=== PATIENT | male | born 1980 | race American Indian/Alaskan Native ===

== ENCOUNTER 2016-11-30 22:04 | Emergency (ER) | payer MEDICARE ==
--- NOTE | 2016-12-01 02:27 | Emergency Department Report ---
ED Neck Pain/Injury HPI - General Chief Complaint: Neck Pain/Injury Stated Complaint: ABCESS/NECK Time Seen by Provider: 12/01/16 01:26 Source: family Mode of arrival: Ambulatory Limitations: Other - History of Present Illness Initial Comments: Family brought patient to the hospital. The patient will right-sided neck swelling they said that patient pain is 8 out of 10 but patient cannot force pain he is mentally delayed and has a speech impediment and definitely left ear. His blood pressure is 155/115 and emergency room and family reports the patient does not have high blood pressure. They did not give patient any over- the-counter medication for pain. Patient does have a primary care is Dr. Mandeep Harrison. They deny patient was drooling or difficulty swallowing. Denies patient with any difficulty in breathing. Mom also reported that patient with drainage from left ear. Denies any trauma. MD Complaint: neck pain Onset/Timin -: days(s) Place: home Radiation: right lateral Severity scale (0 -10): 0 (unable to determine due to patient mental status) Context: unknown Associated Symptoms: none Treatments Prior to Arrival: none - Related Data Previous Rx's Medication Instructions Recorded Last Taken Type Naproxen [Naprosyn TAB] 500 mg PO BID PRN #12 tablet 12/01/16 Unknown Rx Neomy/Polymyx B/Hc Otic Susp 4 drops OTIC TID #1 bottle 12/01/16 Unknown Rx [Cortisporin (Otic) Susp] Allergies Allergy/AdvReac Type Severity Reaction Status Date / Time No Known Allergies Allergy Verified 12/01/16 04:00 ED Review of Systems ROS: Stated complaint: ABCESS/NECK Other details as noted in HPI Chin unable to answer question due to his mental retardation. Family answer questions. Patient otherwise all systems are negative unless stated in HPI above. Comment: Unobtainable due to pts medical conditions Constitutional: denies: chills, fever ENT: denies: throat pain, congestion Respiratory: no symptoms reported Cardiovascular: denies: chest pain, palpitations, edema, syncope Gastrointestinal: denies: vomiting, diarrhea Musculoskeletal: arthralgia. 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 - Family History Family history: hypertension - Social History Smoking Status: Never Smoker Substance Use Type: None - Medications Home Medications: Home Medications Medication Instructions Recorded Confirmed Last Taken Type Naproxen [Naprosyn TAB] 500 mg PO BID PRN #12 tablet 12/01/16 Unknown Rx Neomy/Polymyx B/Hc Otic Susp 4 drops OTIC TID #1 bottle 12/01/16 Unknown Rx [Cortisporin (Otic) Susp] ED Physical Exam - General Limitations: Language Barrier, Physical Limitation, Other General appearance: alert, in no apparent distress - Head Head exam: Present: atraumatic, normocephalic, normal inspection - Expanded Head Exam Expanded Head exam: Absent: laceration, abrasion, contusion, hematoma, racoon eyes, harrell's sign, general tenderness, tenderness of temporal artery, CSF rhinorrhea , CSF otorrhea - Eye Eye exam: Present: normal appearance, PERRL, EOMI - ENT ENT exam: Present: normal exam, normal orophraynx, mucous membranes moist, TM's normal bilaterally, normal external ear exam - Expanded ENT Exam Expanded TM/Canal exam: Canal Discharge: Left TM (clear gracious discharged), Canal Tenderness: Left TM (red and swollen) Mouth exam: Present: normal external inspection. Absent: drooling, trismus, muffled voice, tongue normal, tongue elevation, laceration Throat exam: Positive: normal inspection, other (uvula is midline). Negative: tonsillar erythema, tonsillomegaly, tonsillar exudate, R peritonsillar mass, L peritonsillar mass - Neck Neck exam: Present: normal inspection, tenderness (tenderness to right neck.), full ROM. Absent: meningismus, lymphadenopathy, thyromegaly - Expanded Neck Exam Expanded Neck exam: Present: tenderness (right lateral neck). Absent: midline deformity , anterior neck swelling, tracheal deviation - Respiratory Respiratory exam: Present: normal lung sounds bilaterally. Absent: respiratory distress, chest wall tenderness - Cardiovascular Cardiovascular Exam: Present: regular rate, normal rhythm, normal heart sounds - GI/Abdominal GI/Abdominal exam: Present: soft, normal bowel sounds. Absent: distended, rigid - Extremities Exam Extremities exam: Present: normal inspection, normal capillary refill, other ( is wheelchair bound). Absent: pedal edema, joint swelling - Back Exam Back exam: Present: normal inspection - Neurological Exam Neurological exam: Present: alert (appropriate for mental age) - Psychiatric Psychiatric exam: Present: normal affect, normal mood - Skin Skin exam: Present: warm, dry, intact, normal color. Absent: rash ED Course Vital Signs 11/30/16 12/01/16 12/01/16 22:31 02:33 03:23 Temperature 98.9 F 98.2 F Pulse Rate 86 88 Respiratory 20 20 20 Rate Blood Pressure 155/115 Blood Pressure 155/113 [Left] O2 Sat by Pulse 99 99 98 Oximetry 12/01/16 12/01/16 04:08 05:19 Temperature Pulse Rate Respiratory 20 Rate Blood Pressure Blood Pressure 141/95 [Left] O2 Sat by Pulse Oximetry - Reevaluation(s) Reevaluation #1: 12/01/16 03:00:. Family report patient with right neck swelling. Patient is mentally challenged. Patient evaluated by myself and Dr. Chen. Lab work is drawn and completed. Patient awaiting CT scan soft tissue neck with IV contrast. He has no fever. Airway is patent. Reevaluation #2: 12/01/16 06:[address] scan of the neck and also blood pressure is better. ED Medical Decision Making - Lab Data Result diagrams: 12/01/16 02:31 12/01/16 02:31 Lab Results 12/01/16 12/01/16 12/01/16 Range/Units 02:31 02:31 02:31 WBC 7.3 (4.5-11.0) K/mm3 RBC 5.52 H (3.65-5.03) M/mm3 Hgb 15.8 H (11.8-15.2) gm/dl Hct 48.5 H (35.5-45.6) % MCV 88 (84-94) fl MCH 29 (28-32) pg MCHC 33 (32-34) % RDW 12.3 L (13.2-15.2) % Plt Count 194 (140-440) K/mm3 Lymph % (Auto) 41.2 H (13.4-35.0) % Conway % (Auto) 8.2 H (0.0-7.3) % Eos % (Auto) 2.0 (0.0-4.3) % Baso % (Auto) 0.4 (0.0-1.8) % Lymph # 3.0 (1.2-5.4) K/mm3 Conway # 0.6 (0.0-0.8) K/mm3 Eos # 0.1 (0.0-0.4) K/mm3 Baso # 0.0 (0.0-0.1) K/mm3 Seg Neutrophils % 48.2 (40.0-70.0) % Seg Neutrophils # 3.5 (1.8-7.7) K/mm3 Sodium 138 (137-145) mmol/L Potassium 4.0 (3.6-5.0) mmol/L Chloride 94.3 L (98-107) mmol/L Carbon Dioxide 29 (22-30) mmol/L Anion Gap 19 mmol/L BUN 8 L (9-20) mg/dL Creatinine 0.7 L (0.8-1.5) mg/dL Estimated GFR > 60 ml/min BUN/Creatinine Ratio 11.42 % Glucose 170 H (75-100) mg/dL Lactic Acid 1.8 (0.7-2.0) mmol/L Calcium 10.1 (8.4-10.2) mg/dL C-Reactive Protein 0.30 (0.00-1.30) mg/dL Blood cultures pending. - Radiology Data Radiology results: report reviewed CT scan of the neck without contrast revealed normal examination. Skull and scalp normal, paranasal sinuses normal, nasopharynx normal, oral cavity normal, epiglottitis normal, larynx normal, thyroid gland normal, lymph nodes nonenlarged. Saliva glands normal, upper thorax normal. - Medical Decision Making With Dr. Chen saw and evaluated patient, she is aware of lab results and CT scan results. She is okay with patient being discharged home with prescription for Naprosyn. ED course: Patient here with family who presented patient with neck pain on the right side. No traumatic injury per family. I related to family did CT scan was normal and patient lab work was within normal limits. Blood cultures are drawn and pending. Patient blood pressure was elevated upon arrival to the ED he was given some morphine via IV and his blood pressure is now stabilized. I discussed with patient's mom that she needs to take patient for follow-up to his primary care physician was Dr. Mandeep Harrison in 1-2 days for follow-up neck pain. Patient discharged home with prescription for Naprosyn. Critical care attestation.: If time is entered above; I have spent that time in minutes in the direct care of this critically ill patient, excluding procedure time. ED Disposition Clinical Impression: Acute strain of neck muscle Qualifiers: Encounter type: initial encounter Qualified Code(s): S16.1XXA - Strain of muscle, fascia and tendon at neck level, initial encounter Otitis externa of left ear Qualifiers: Otitis externa type: unspecified type Chronicity: acute Qualified Code(s): H60.502 - Unspecified acute noninfective otitis externa, left ear Disposition: DISCHARGED TO HOME OR SELFCARE Is pt being admited?: No Does the pt Need Aspirin: No Condition: Stable Instructions: Muscle Strain (ED), Otitis Externa (ED) Additional Instructions: Please follow up with Dr. Mandeep Harrison in 1-2 days. She gave patient naproxen for pain as needed. use antibiotic eardrops for ear infection. Prescriptions: Naproxen [Naprosyn TAB] 500 mg PO BID PRN #12 tablet PRN Reason: Pain Neomy/Polymyx B/Hc Otic Susp [Cortisporin (Otic) Susp] 4 drops OTIC TID #1 bottle Referrals: MANDEEP HARRISON MD [Primary Care Provider] - 12/02/16 Forms: Accompanied Note
[2016-12-01 02:50] LABS: Basophils % (Auto) 0.4 % (0.0-1.8); Hematocrit 48.5 % (35.5-45.6); Hemoglobin 15.8 gm/dl (11.8-15.2); Mean Corpuscular HGB Conc 33 % (32-34); Mean Corpuscular Hemoglobin 29 pg (28-32); Mean Corpuscular Volume 88 fl (84-94); Platelet Count 194 K/mm3 (140-440); Red Blood Count 5.52 M/mm3 (3.65-5.03); Red Cell Distribution Width 12.3 % (13.2-15.2); White Blood Count 7.3 K/mm3 (4.5-11.0)
[2016-12-01 03:00] LABS: Anion Gap 19 mmol/L; BUN/Creatinine Ratio 11.42; Blood Urea Nitrogen 8 mg/dL (9-20); Calcium 10.1 mg/dL (8.4-10.2); Carbon Dioxide 29 mmol/L (22-30); Chloride 94.3 mmol/L (98-107); Glucose 170 mg/dL (75-100); Sodium 138 mmol/L (137-145)
[2016-12-01] MEDS ORDERED: MORPHINE ONE (03:46)
[2016-12-01] MEDS: MORPHINE IV ONE (04:08)
[2016-12-01] MEDS: NACL ONE (05:05)
[2016-12-01 05:19] VITALS: BP 141/95
--- NOTE | 2016-12-01 05:29 | Cat Scan Report ---
FINAL REPORT PROCEDURE: CT NECK W CON TECHNIQUE: Computerized axial tomography of the soft tissue neck was performed following the IV injection of iodinated nonionic contrast. HISTORY: rt neck swelling COMPARISON: No prior studies are available for comparison. FINDINGS: Skull and scalp: Normal. Paranasal sinuses: Normal. Nasopharynx: Normal . Oral cavity: Normal . Epiglottis/vallecula: Normal . Larynx/pyriform sinuses: Normal . Thyroid gland: Normal . Lymph nodes: None enlarged . Salivary glands: Normal . Upper thorax: Normal . IMPRESSION: Normal Examination
== END 2016-12-01 06:43 | disposition home or self-care (01) ==
LOC: ED 22:04
DX: S16.1XXA Strain of muscle, fascia and tendon at neck level, initial encounter (principal); H60.502 Unspecified acute noninfective otitis externa, left ear
CPT/HCPCS: 36415; 70491; 80048; 82140; 85025; 86140; 87040; 96374; 99284; J2270; Q9967